=== PATIENT | male | born 1935 | race Caucasian/White ===

== ENCOUNTER → 2016-06-02 16:27 | Outpatient (CLI) | payer MEDICARE, BC ==
[~2016-06-02 16:27] MED LIST: ACETAMINOPHEN500 M1 PO; CARDURA8 MG PO; ELIQUIS2.5 MG PO; FLUTICASONE PRO16 GM NASAL; HYDROCODON-ACE1 EAC7 PO; MULTI-DAY VITAM1 TAB PO; NEURONTIN 300300 MG PO; OXYCODONE HCL5 MG PO; PEPCID20 MG PO; TOPROL XL50 MG PO; TRAZODONE HCL50 MG PO
[2016-06-15 12:15] VITALS: BMI 27.4
== END | disposition home or self-care (01) ==
LOC: D.LABREF 16:27
DX: M17.9 Osteoarthritis of knee, unspecified (principal); Z11.8 Encounter for screening for other infectious and parasitic diseases

== ENCOUNTER 2016-06-10 08:00 | Inpatient (IN) | payer MEDICARE, BC ==
[~2016-06-10] VITALS: Ht 172.7 cm; Wt 81.8 kg
[~2016-06-10 08:00] MED LIST changes: -ELIQUIS2.5 MG PO; -OXYCODONE HCL5 MG PO
[2016-06-10 09:06] LABS: BASOPHILS 0.9 % (0.0-2.0); EOSINOPHILS 7.4 % (0-7); HEMATOCRIT 42.1 % (42.0-54.0); HEMOGLOBIN 14.4 g/dL (13.5-17.5); LYMPHOCYTES 28.4 % (15-50); MCH 31.6 pg (26.0-34.0); MCHC 34.2 g/dL (31.0-37.0); MCV 92.5 fL (80.0-100.0); MEAN PLATELET VOLUME 9.5 fL (7.4-10.4); MONOCYTES 12.6 % (2-11); NEUTROPHILS 50.7 % (40-80); PLATELET COUNT 132 10x3/uL (130-400); RBC 4.55 10x6/uL (4.20-6.10); RDW 12.6 % (11.5-14.5); WBC 5.4 10x3/uL (4.8-10.8)
[2016-06-10 09:07] LABS: APPEARANCE CLEAR (CLEAR); BILIRUBIN NEGATIVE (NEGATIVE); COLOR YELLOW (YELLOW); GLUCOSE 100 mg/dL (NEGATIVE); KETONE NEGATIVE (NEGATIVE); LEUKOCYTE ESTERASE NEGATIVE (NEGATIVE); NITRITE NEGATIVE (NEGATIVE); PROTEIN NEGATIVE (NEGATIVE); SPECIFIC GRAVITY 1.025 (1.005-1.020); UROBILINOGEN NORMAL (NORMAL)
[2016-06-10 09:11] LABS: ANION GAP 12.3 mmol/L (8-16); CALCIUM 9.3 mg/dL (8.5-10.1); CREATININE - SERUM 1.2 mg/dL (0.6-1.3); POTASSIUM - SERUM 4.3 mmol/L (3.5-5.1)
[2016-06-10 09:15] LABS: APTT 36.2 SECONDS (22.8-39.4); INR 1.08 (0.85-1.17); PROTIME 13.9 SECONDS (11.6-15.0)
[2016-06-15] VITALS (11 sets, daily range): BP systolic 103–134; BP diastolic 64–75; Ht 172.7 cm; Wt 81.8 kg
--- NOTE | 2016-06-15 08:43 | NUR ---
0840-PT. STATES HEALTH HISTORY UNCHANGED SINCE VELA APPT.
--- NOTE | 2016-06-15 11:40 | NUR ---
PATIENT RECEIVED TO FLOOR FROM PACU VIA BED. NO SIGNS OF DISTRESS NOTED. VITAL SIGNS STABLE. PATIENT ORIENTED TO ROOM. DRESSING TO LEFT KNEE CLEAN, DRY AND INTACT WITH ICE PACK IN PLACE. INCENTIVE SPIROMETER AND TEACHING PROVIDED. BED ALARM AND YELLOW FALL RISK BAND ON. SCD SLEEVES ON. AWAITING ON MACHINE FROM [facility]. DENIES NEEDS. SIDE RAILS UP X2. BED IN LOW POSITION. CALL LIGHT IN REACH.
--- NOTE | 2016-06-15 14:35 | NUR ---
PATIENT IN LEFT LATERAL POSITION RESTING WITH EYES CLOSED. RESPIRATIONS EVEN AND UNLABORED. SIDE RAILS UP X2. BED IN LOW POSITION. CALL LIGHT IN REACH.
--- NOTE | 2016-06-15 19:35 | NUR ---
RECIEVED SHIFT REPORT. PT IS LYING IN BED. ALERT AND ORIENTED AND ABLE TO VERBALIZE NEEDS. IV IS PATENT AND FLUIDS ARE RUNNING PER ORDER. CPM ON. SCD'S ON. DRESSING TO LEFT KNEE C/D/I. PT STATES PAIN IS 2/10. NO NEEDS ARE VERBALIZED AT THIS TIME. WILL CONTINUE TO MONITOR. SIDE RAILS ARE UP X 2. BED IS IN LOWEST POSITION. BED ALARM IS ON FOR SAFETY. CALL LIGHT IS WITHIN REACH.
--- NOTE | 2016-06-15 21:32 | NUR ---
SHIFT ASSESSMENT COMPLETED. NIGHT MEDS GIVEN WITH NO PROBLEMS. PT C/O PAIN 08/06. ADMINISTERED PRESCRIBED PRN OXY IR 5MG PER ORDER. DENIES FURTHER NEEDS. WILL MONITOR. SIDE RAILS X 2. BED LOW. BED ALARM ON. CALL LIGHT IN REACH.
[2016-06-16 05:33] LABS: HEMATOCRIT 36.8 % (42.0-54.0); HEMOGLOBIN 12.3 g/dL (13.5-17.5); MCH 30.8 pg (26.0-34.0); MCHC 33.4 g/dL (31.0-37.0); MCV 92.2 fL (80.0-100.0); MEAN PLATELET VOLUME 9.7 fL (7.4-10.4); RBC 3.99 10x6/uL (4.20-6.10); RDW 12.6 % (11.5-14.5); WBC 10.2 10x3/uL (4.8-10.8)
[2016-06-16 08:13] VITALS: BP 97/55
--- NOTE | 2016-06-16 08:24 | NUR ---
PT SEEN AND ASSESSED. NO COMPLAINTS AT PRESENT. LEFT LEG IN CPM MACHINE AT PRESENT WITH TOES PIMK AND WARM. ARUN WRAP NOTED FROM MIDTHIGH TO FOOT. BED ALARM ON FOR SAFETY. CALL LIGHT IN REACH
--- NOTE | 2016-06-16 11:32 | NUR ---
* Is the patient Alert and Oriented? Yes 0 * How many steps to enter\exit or inside your home? 0 0 * PCP Dr. Bolanos 0 * Pharmacy [facility] on [address] * Preadmission Environment Home with Family 0 * ADLs Independent 0 * Equipment Bedside Commode Rolling Walker 0 * List name and contact numbers for known caregivers / representatives who currently or will assist patient after discharge: Spouse - Georgina [phone] or [phone] 0 * Additional services required to return to the preadmission environment? Yes 0 * Can the patient safely return to the preadmission environment? Yes 0 * Has this patient been hospitalized within the prior 30 days at any hospital? No 0 06/16/2016 11:33 DCP: Discharge Planning Patient Name: NIKKO LEOS Admission Status: Elective Accout number: [id number] Admission Date: 06-15-2016 : 1935 Admission Diagnosis: Attending: TO Current LOS: 1 Anticipated DC Date: 06-17-2016 Planned Disposition: Outpatient PT\OT Primary Insurance: MEDICARE A & B Discharge Planning Comments: CM met with patient to assess dc plans/needs. Patient states he lives at home with his , Georgina. Prior to admission, he was independent with all ADL's. He has a rolling walker & BSC @ home. At dc, he will return home with his . He has chose [facility] - waiting on return call for appt. date/time. CM will follow. Legal Stenographer: Kati Chow
[2016-06-16 11:56] VITALS: BP 118/58
--- NOTE | 2016-06-16 13:10 | NUR ---
06/16/2016 13:05 DCP: Discharge Planning OP PT appt. scheduled 06/18 @ 1115 at [facility] Rx faxed.
[2016-06-16 15:52] VITALS: BP 123/62
--- NOTE | 2016-06-16 20:40 | NUR ---
WHILE ATTEMPTING TO ASSIST PATIENT FROM BATHROOM TO BED PATIENT BEGAN TO COMPLAIN OF SEVERE ABD PAIN. BECAME DIAPHORETIC AND LOST CONCIOUSNESS FOR APPROXIMATELY 2 MINUTES. ATTEMPTED TO ASSIST PATIENT BACK TO BED A SECOND TIME AND AGAIN PATIENT LOST CONCIOUSNESS FOR APPROXIMATELY 1 MINUTE. VITAL SIGNS STABLE. PATIENT DENIES REMEMBERING THE EVENTS. THIS NURSE AND COLLET MAKER ASSISTED PATIENT TO THE BED. NO LONGER DIAPHORETIC. MD NOTIFIED AND ORDERS RECEIVED. BED LOW. CALL LIGHT IN REACH.
[2016-06-16 21:49] LABS: HEMATOCRIT 34.9 % (42.0-54.0)
[2016-06-16 22:05] VITALS: BP 118/76
--- NOTE | 2016-06-16 22:35 | NUR ---
SUPPOSITORY GIVEN ORDERED. PATIENT TOLERATED WITHOUT COMPLAINTS. AWAITING RESULTS. BED LOW. CALL LIGHT IN REACH.
[2016-06-17 01:00] VITALS: BP 129/65
[2016-06-17 05:28] LABS: BASOPHILS 0.3 % (0.0-2.0); EOSINOPHILS 2.5 % (0-7); HEMATOCRIT 34.2 % (42.0-54.0); HEMOGLOBIN 11.4 g/dL (13.5-17.5); IMMATURE GRANULOCYTES 0.2 % (0-5); LYMPHOCYTES 13.6 % (15-50); MCHC 33.3 g/dL (31.0-37.0); MCV 92.9 fL (80.0-100.0); MEAN PLATELET VOLUME 9.7 fL (7.4-10.4); MONOCYTES 13.2 % (2-11); NEUTROPHILS 70.2 % (40-80); PLATELET COUNT 120 10x3/uL (130-400); RBC 3.68 10x6/uL (4.20-6.10); RDW 12.8 % (11.5-14.5); WBC 9.1 10x3/uL (4.8-10.8)
[2016-06-17 05:53] LABS: CALC OSMOLALITY 278 mosm/kg (275-300); CALCIUM 8.6 mg/dL (8.5-10.1); CARBON DIOXIDE 28.4 mmol/L (21.0-32.0); CHLORIDE - SERUM 102 mmol/L (98-107); GLUCOSE 177 mg/dL (74-106); POTASSIUM - SERUM 4.4 mmol/L (3.5-5.1); SODIUM 137 mmol/L (136-145); UREA NITROGEN 15 mg/dL (7-18); eGFR NON AFRICAN AMERICAN 76 mL/min (90-120)
--- NOTE | 2016-06-17 07:30 | NUR ---
REPORT RECEIVED FROM MANAGER COMPETITIVE INTELLIGENCE NURSE. CALL LIGHT IN REACH.
[2016-06-17 08:19] VITALS: BP 143/59
--- NOTE | 2016-06-17 08:20 | NUR ---
HAND SHAKER STATES PATIENT HAD AN EPISODE AFTER GETTING OFF OF THE TOILET WHERE IT SEEMED IF HE "PASSED OUT". VSS AT THIS TIME. BACK TO BED. ALARM TURNED ON. WILL MONITOR. UP TALKING AND ACTING NORMAL WHEN I MADE IT TO THE ROOM.
--- NOTE | 2016-06-17 08:42 | NUR ---
ASSESSMENT COMPLETED. OXY IR PO WITH AM MEDS. ICE PACK TO KNEE. CALL LIGHT IN REACH. IN ROOM. WILL CONTINUE WITH PLAN OF CARE.
--- NOTE | 2016-06-17 09:15 | NUR ---
PT STATES PATIENT HAD AN EPISODE WHERE HE "PASSED OUT" AFTER AMBULATING IN [place]. WILL NOTIFY DR. EDMOND..
[2016-06-17 11:27] LABS: CKMB 1.9 U/L (0.0-3.6); CREATINE KINASE 303 UL (21-232); TROPONIN-I < 0.017 ng/mL (0.000-0.060)
[2016-06-17 11:53] VITALS: BP 125/54
[2016-06-17 11:56] LABS: HEMATOCRIT 36.5 % (42.0-54.0); HEMOGLOBIN 12.2 g/dL (13.5-17.5)
--- NOTE | 2016-06-17 11:57 | NUR ---
DENIES NEEDS AT THIS TIME. CALL LIGHT IN REACH.
--- NOTE | 2016-06-17 13:09 | NUR ---
OXY IR PO PER C/O PAIN 10. NOON MEDS GIVEN. AT BEDSIDE. CALL LIGHT IN REACH.
--- NOTE | 2016-06-17 15:20 | NUR ---
NO NEEDS VOICED AT THIS TIME. CALL LIGHT IN REACH.
[2016-06-17 15:57] LABS: CKMB 1.4 U/L (0.0-3.6); CREATINE KINASE 259 UL (21-232)
[2016-06-17 15:59] LABS: TROPONIN-I < 0.017 ng/mL (0.000-0.060)
--- NOTE | 2016-06-17 16:06 | NUR ---
ANTS TO MAKE SURE THAT PATIENT IS NOT LEFT IN THE BATHROOM BY HIMSELF ALONE.
[2016-06-17 17:34] VITALS: BP 108/68
--- NOTE | 2016-06-17 18:13 | NUR ---
TYLENOL AND OXY IR PO. NO CHANGES IN INITIAL ASSESSMENT. SCDs TO BLE. BED ALARM ON. ICE PACK APPLIED. CALL LIGHT IN REACH. WILL CONTINUE WITH PLAN OF CARE.
--- NOTE | 2016-06-17 20:00 | NUR ---
ASSESSMENT PER FLOWSHEET. IV PATTENT RT ARM SALINE LOCK SITE CLEAR. DRESSING TO LEFT KNEE C/D/I LEG IN CPM MACHINE. SCD'S ON. SR UP X2 CALL LIGHT WITHIN REACH. TELM. SR W/BBB HR 66. BED ALARM ON.
[2016-06-17 21:00] VITALS: BP 136/67
--- NOTE | 2016-06-17 21:33 | NUR ---
MEDS GIVEN PER JUL. CPM REMOVED C/O PAIN INCISIONAL SITE. RATES PAIN LEVEL #6. OXY IR 10MG PO GIVEN FOR PAIN CONTROL.
[2016-06-17 21:46] LABS: CKMB 0.9 U/L (0.0-3.6); CREATINE KINASE 243 UL (21-232)
[2016-06-17 21:50] LABS: TROPONIN-I < 0.017 ng/mL (0.000-0.060)
--- NOTE | 2016-06-17 23:00 | NUR ---
RESTING QUIETLY AT THIS TIME. SR UP X2 CALL LIGHT WITHIN REACH. READING A BOOK,
--- NOTE | 2016-06-18 | NUR ---
EYES CLOSED RESPIRATIONS WITH EASE AND UNLABORED.
[2016-06-18 01:00] VITALS: BP 140/68
--- NOTE | 2016-06-18 02:00 | NUR ---
REPOSITIONED IN BED RESTIING QUIETLY.
--- NOTE | 2016-06-18 04:31 | NUR ---
EYES CLOSED RESPIRATIONS WITH EASE AND UNLABORED.
[2016-06-18 05:00] VITALS: BP 133/62
--- NOTE | 2016-06-18 07:00 | NUR ---
REPORT RECEIVED FROM MAIL TECHNICIAN NURSE. CALL LIGHT IN REACH.
--- NOTE | 2016-06-18 08:31 | NUR ---
ASSESSMENT COMPLETED. OXY IR PO WITH AM MEDS ADMINISTERED. DOES NOT WANT SCDs ON. DR. CAMACHO IN ROOM. ALSO AT BEDSIDE. CALL LIGHT IN REACH. WILL CONTINUE WITH PLAN OF CARE.
[2016-06-18 08:32] VITALS: BP 96/62
--- NOTE | 2016-06-18 10:23 | NUR ---
06/18/2016 10:21 DCP: Discharge Planning Patient Name: NIKKO LEOS Encounter No: [id number] : 1935 Primary Insurance: MEDICARE A & B Anticipated DC Date: 06-17-2016 Planned Disposition: Outpatient PT\OT External Planned Provider: [facility] DCP follow-up note: DC order rec'd. OP PT appt. rescheduled for 06/21 @ 1400. Patient and family in agreement with discharge plan. No changes to plan. Kati Chow
[2016-06-18] MEDS ORDERED: OXYCODONE HCL5 MG PO (11:03)
[2016-06-18] MEDS ORDERED: ELIQUIS2.5 MG PO (11:05)
[2016-06-18 11:50] VITALS: BP 141/75
--- NOTE | 2016-06-18 11:50 | NUR ---
WATCHING TV QUIETLY AT PRESENT DENIES ANY NEED AT THIS TIME.
--- NOTE | 2016-06-18 12:26 | NUR ---
TYLENOL AND OXY IR PO. IV DC'D WITH TIP INTACT. DC INSTRUCTIONS EXPLAINED TO PATIENT AND . VERBALIZED UNDERSTANDING.
--- NOTE | 2016-06-18 13:05 | NUR ---
DC'D TO VEHICLE VIA WX WITH .
--- NOTE | 2016-06-20 13:51 | HP ---
PATIENT: NIKKO LEOS MEDICAL RECORD: [id number] ACCOUNT: [id number] LOCATION:D.MS [id number] : [birth year] ADMISSION DATE: 06/15/16 HISTORY AND PHYSICAL EXAMINATION DATE OF ADMISSION: 06/15/2016 REASON FOR CONSULTATION: Medical management. HISTORY OF PRESENT ILLNESS: The patient is an 81-year-old pleasant gentleman who is a patient of Dr. Bolanos. He had referred him to Dr. Roc Arshad for osteoarthritis of the left knee. It was felt by Dr. Arshad that patient should undergo a total left knee replacement. The patient did undergo a total left knee replacement earlier today. Dr. Bolanos has been consulted for medical management. PAST MEDICAL AND SURGICAL HISTORY: He has had bilateral knee arthroscopic, but states the left knee has continued to give him pain. He has had a history of having lower extremity edema. He has had hypertension, insomnia and gastroesophageal reflux. He has had history of having a TURP by Dr. Ruelas. He has had a tonsillectomy. He has had an appendectomy. He has had a vasectomy. The patient has had a history of esophagitis as well as hiatal hernia. FAMILY HISTORY: Father apparently had heart disease. Mother had hypertension. HABITS: The patient had been a 2 pack per day smoker, stopped in 1974. 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 He is currently . Occasional alcoholic beverage. ALLERGIES: He has no known drug allergies. MEDICATIONS: Include Meche 180 mg 1 p.o. daily, also, he is on doxazosin 8 mg 1 p.o. daily, famotidine 20 mg p.o. b.i.d., fluticasone 50 mcg 2 squirts b.i.d., gabapentin 300 mg b.i.d., metoprolol succinate ER 1 p.o. daily, omeprazole 20 mg once a day, Carafate 1 g q.a.c. and q.h.s. and trazodone 50 mg 2 p.o. q.h.s. REVIEW OF SYSTEMS: CONSTITUTIONAL: He denies any headaches, seizure or syncope. Denies change in visual or auditory acuity. PULMONARY: He denies any shortness of breath, cough, congestion, history of TB, asthma or bronchitis. CARDIOVASCULAR: He has had no chest pain, palpitation, PND or orthopnea. GASTROINTESTINAL: He has had no chronic nausea, vomiting, melena or hematochezia. GENITOURINARY: No urgency, frequency, or dysuria. PHYSICAL EXAMINATION: GENERAL: Today, the patient is postop. Patient is alert. He is oriented times 3. VITAL SIGNS: His blood pressure currently is 109/72, his respirations 20, his pulse 66, temperature 97 and his O2 sat is 96% on room air. HEENT: Head is normocephalic. No lesions. Ears: TMs clear. Eyes: Pupils equal, round and reactive to light. His extraocular movements are intact. His HISTORY AND PHYSICAL [id number] NIKKO LEOS nasal cavity, oral cavity and oropharynx clear. NECK: Supple. There is no adenopathy. HEART: Has a regular rhythm. No murmurs, gallops or rubs. LUNGS: Clear. ABDOMEN: Soft, bowel sounds positive. No organomegaly. GENITAL AND RECTAL: Deferred. EXTREMITIES: Lower extremities had no edema. The patient has ice with compression over the left leg, status post total left knee replacement. LABORATORY DATA: Preoperatively, the patient's CBC, he had a white count 5.4, hemoglobin 14.4, hematocrit 42.1 and his platelets were 132. His sodium is 137, potassium 4.3, chloride is 100, CO2 is 29, BUN is 13, creatinine is 1.2 and glucose is 220. He had a preoperative chest x-ray showing no cardiomegaly, no active infiltrates. Postoperative knee changes showed prosthesis in place. ASSESSMENT: Status post replacement of left knee, history of hyperlipidemia, hypertension, history of appendectomy and TURP. PLAN: We will continue all the patient's current medications. Repeat his CBC as well as BMP in a.m. Dr. Bolanos will be following. TRANSINT:[id number] Voice Confirmation ID: [id number] DOCUMENT ID: [id number] SHANTI TOTH MD at 1351 CC: [id number] DICTATION DATE: 06/15/161735 COMPUTER NUMERICAL CONTROL MACHINIST: 06/15/16 182 DIS IN 06/18/16 [facility] [address] [place] [address]
--- NOTE | 2016-06-23 14:16 | CN ---
PATIENT NAME:NIKKO LEOS MEDICAL RECORD: [id number] : [birth year] LOCATION:D.MS [place] ADMIT DATE: 06/15/16 ACCOUNT: [id number] CONSULTING PHYSICIAN: SWATHI CAMACHO MD REFERRING PHYSICIAN: VICKY FOX MD DATE OF CONSULTATION: 06/18/2016 HISTORY OF PRESENT ILLNESS: An 81-year-old gentleman with no known history of coronary artery disease. He has a history of right bundle branch block, unspecified arrhythmia, had total knee replacement and had near syncope, one was classicially vagal when he recieved a suppository and was straining to stool. Next was after taking medicines and then walking. He has no history of this. He stays quite active previously. We are asked to see him concerning his cardiovascular status. PAST MEDICAL HISTORY: 1. History of gastroesophageal reflux disease. 2. Hypertension. 3. Abnormal ECG. 4. Osteoarthritis. 5. Peripheral neuropathy. ALLERGIES: None known. MEDICATIONS: Cardura 8 mg q.h.s., Toprol 50 daily, [place] 5/325 q. 6 p.r.n., Neurontin 800 b.i.d., Trazodone 50 q.h.s., Pepcid 20 b.i.d. SOCIAL HISTORY: , nonsmoker. He takes care of all his ADLs, does exercise. Retired. REVIEW OF SYSTEMS: The patient reports easy bruising but reports no swollen glands. The patient reports no fever, no night sweats, no significant weight gain, no significant weight loss. No significant exercise tolerance. The patient reports no dry eyes, no irritation, no vision change. Patient reports no difficulty hearing and no ear pain. Patient reports no frequent nose bleeds or nose and sinus problems. Patient reports on arm pain on exertion. No shortness of breath while lying down. No history of heart murmur. Patient reports no cough, no wheezing or coughing up blood. Patient reports no abdominal pain, no vomiting. Normal appetite. No diarrhea and not vomiting blood. No nausea and no constipation. Patient reports no incontinence. No difficulty urinating. No hematuria. No increased frequency. Patient reports no muscle aches. No weakness, no arthralgias, no back pain. No swelling of the extremities. Patient reports no abnormal mole, no jaundice, no rashes. Reports no loss of consciousness. No weakness and no numbness. No seizures, dizziness, or headaches. The patient reports no depression, no sleep disturbance, feeling safe in a relationship and no alcohol abuse. Patient reports on fatigue. Reports no runny nose or sinus pressure. No itching, no hives, and no frequent sneezing. PHYSICAL EXAMINATION: GENERAL: Pleasant gentleman in no acute distress. VITAL SIGNS: Blood pressure 133/62, pulse 65 and regular. HEENT: Normocephalic, atraumatic. NECK: No JVD or bruit. HEART: Regular. CONSULT REPORT [id number] NIKKO LEOS LUNGS: Reza clear. ABDOMEN: Soft, nontender. EXTREMITIES: Pulse 2+ with no edema. NEUROLOGIC: Grossly intact. DIAGNOSTIC DATA: ECG shows a right bundle branch block. IMPRESSION: Near syncope, resolved. Given timing, suspect not dysrhythmia related. Okay to discharge from a cardiovascular standpoint. TRANSINT:[id number] Voice Confirmation ID: [id number] DOCUMENT ID: [id number] SWATHI CAMACHO MD at 1416 CC: [id number] DICTATION DATE: 06/18/16 0839 POWER BALLAST MACHINE OPERATOR: 06/18/16 1329 DIS IN 06/18/16 [facility] [address] [place] [address]
--- NOTE | 2016-06-24 08:25 | OP ---
PATIENT NAME: NIKKO LEOS MEDICAL RECORD: [id number] :33 LOCATION:D.MS Eli221[facility] ADMISSION DATE:06/15/16 SURGEON: VICKY ARSHAD MD DATE OF OPERATION: 06/15/2016 PREOPERATIVE DIAGNOSIS: Left knee degenerative joint disease. POSTOPERATIVE DIAGNOSIS: Left knee degenerative joint disease. PROCEDURE PERFORMED: Left total knee arthroplasty. SURGEON: Roc Arshad MD ANESTHESIA: General with a block for postop pain. TOURNIQUET TIME: 52 minutes. ESTIMATED BLOOD LOSS: Minimal. CONDITION: He tolerated the procedure well, was transferred to recovery room in stable condition at termination of the procedure. INDICATIONS: This is an 81-year-old gentleman who has had significant degenerative changes in his knee. He is no longer tolerating therapy, shots or oral medications. He presents for a total knee arthroplasty. We discussed the risks, benefits, alternatives, including blood loss, scar, pain, need for further procedure, anesthesia risks, failure of the components. He understood and wished to proceed. OPERATIVE REPORT: The patient was taken to the operating room, placed in a supine position. General anesthesia was obtained. He did have the block placed in the preop holding area. Once he was asleep, the left leg was confirmed to be the correct leg. He was then prepped and draped in normal fashion. After this was accomplished, I proceeded to do a secondary ChloraPrep and Ioban dressing placement. Once this was accomplished, I then proceeded to make a midline incision followed by a medial parapatellar incision. Fat pad was excised. The medial soft tissue sleeve was elevated. The femur was entered with a drill. Guide was placed. A distal femoral cut was made. Distal femur was measured at 67.5 and the distal femoral cuts were then made. I then proceeded to sublux the tibia forward, placed the guide and made a proximal tibial cut. This was followed by placing the final tibial component, taken through flexion and extension and marking for rotation. I then placed for a 75 tibia. After this was accomplished, I proceeded to take off the backside of the patella, measured this for a 34, drilled for a 34 three-peg hole patellar button. All 3 components were trialed, felt good in flexion and extension. No significant instability in either. I therefore took everything out, copiously irrigated and then cemented into place a 67.5 femur, 75 tibia, 34 three-peg hole patellar button, and placed a 14 spacer while poly dried. Once the poly was dried, took out the excess cement and then placed the final 14 poly. It was very stable. He was copiously irrigated, then closed with a #1 barbed PDS, then 2-0 Vicryl, then 3-0 Prolene. He was then awakened and transferred to recovery room in stable condition, having tolerated the procedure well. TRANSINT:[id number] Voice Confirmation ID: [id number] DOCUMENT ID: [id number] OPERATIVE REPORT [id number] DAFNENIKKO MACIAS, VICKY MADDOX MD at 0825 CC: [id number] DICTATION DATE: 06/15/16 1121 FIELD CROP HARVEST CONTRACTOR: 06/15/16 1151 DIS IN 06/18/16 [id number] [place] [address]
--- NOTE | 2016-06-24 08:25 | DS ---
PATIENT:NIKKO LEOS :33 MEDICAL RECORD: [id number] DISCHARGE SUMMARY ADMISSION DATE: 06/15/16 DISCHARGE DATE: 06/18/16 DATE OF ADMISSION: 06/15/2016. DATE OF DISCHARGED: 06/17/2016. ADMITTING DIAGNOSIS: Left knee degenerative joint disease. DISCHARGE DIAGNOSES: Left knee degenerative joint disease and postoperative acute blood loss anemia. HISTORY: This is a pleasant 81-year-old gentleman with significant degenerative changes of his knee. This has gotten to the point where he was no longer tolerating it. He presents for a left total knee arthroplasty. He has done quite well with this procedure. It was felt that he is at a juncture he could be discharged to home. We will have him continue on outpatient physical therapy at [facility]. He is going to continue on Eliquis for anticoagulation therapy. He is to continue on oxycodone and Eliquis. I am going to see him back in the office about 2-3 weeks. He is going to call if he is having any problems. TRANSINT:[id number] Voice Confirmation ID: [id number] DOCUMENT ID: [id number] VICKY FOX MD at 0825 CC: [id number] DICTATION DATE: 06/17/16 0745 UNPAID INTERN: 06/17/16 0848 DIS IN 06/18/16 [id number] [place] [address]
== END 2016-06-18 13:05 | disposition home or self-care (01) | DRG 470 ==
LOC: D.SDCHOLD 08:00 → D.MS 06-15 05:39 → D.SDCHOLD 06-15 08:00 → D.MS 06-15 09:11 → D.SDCHOLD 06-15 09:45 → D.MS 06-18 13:05
PROVIDERS: Family Medicine; ADMIT Orthopaedic Surgery Sports Medicine
PROC: 0SRD0J9 Replacement of Left Knee Joint with Synthetic Substitute, Cemented, Open Approach (ICD-10-PCS; principal; 2016-06-15 09:45)
DX: M17.12 Unilateral primary osteoarthritis, left knee (principal); D62 Acute posthemorrhagic anemia; K21.9 Gastro-esophageal reflux disease without esophagitis; E78.5 Hyperlipidemia, unspecified; I10 Essential (primary) hypertension; Z87.891 Personal history of nicotine dependence; R55 Syncope and collapse; I45.10 Unspecified right bundle-branch block